=== PATIENT | male | born 1965 | race Caucasian/White ===

== ENCOUNTER 2023-05-30 06:45 | Day surgery (SDC) | payer BC, SELFPAY ==
[2023-05-26 10:33] LABS: Hematocrit 44.8 % (39.0-52.0); Hemoglobin 15.6 g/dL (13.0-18.0); Mean Corp Hgb Conc. 34.8 g/dL (33.0-37.0); Mean Corpuscular Hgb 31.8 pg (27.0-31.0); Mean Corpuscular Volume 91.4 fL (80.0-94.0); Mean Platelet Volume 10.3 fL (7.4-10.4); Platelet Count 208 10^3/uL (130-400); Red Cell Dist. Width 12.2 % (11.5-14.5); White Blood Cell Count 6.6 10^3/uL (4.8-10.8)
[2023-05-26 11:01] LABS: ALT (SGPT) 37 U/L (0-50); AST (SGOT) 30 U/L (17-59); Albumin 4.3 g/dl (3.5-5.0); Alkaline Phosphatase 58 U/L (38-126); Blood Urea Nitrogen 21 mg/dl (9-20); Calcium 9.3 mg/dl (8.4-10.2); Carbon Dioxide 30 mmol/L (22-30); Chloride 105 mmol/L (98-107); Glucose 95 mg/dl (70-99); Potassium 4.4 mmol/L (3.5-5.1); Sodium 139 mmol/L (135-145); Total Bilirubin 1.1 mg/dl (0.2-1.3); Total Protein 7.1 g/dl (6.3-8.2); eGFR > 60.00
[2023-05-26 13:33] VITALS: BMI 37.9
[2023-05-30] VITALS (11 sets, daily range): BP systolic 99–146; BP diastolic 59–94; BMI 37.9
--- NOTE | 2023-05-30 07:25 | HP.FOC2 ---
Focused History & Physical
Chief Complaint
HPI:
Chief Complaint: Chronic calculus cholecystitis
HPI / Indication for Planned Procedure: Patient is a 57-year-old male known to myself with a history of gallstones that he has been following expectantly for the past few years. He has occasional bouts of postprandial epigastric and right upper
quadrant abdominal pain. Ultrasound confirmed gallstones. He presents today for scheduled cholecystectomy.
Relevant Past Medical History: Other (GERD with Amos's)
Relevant Social History: Negative
Relevant Family History: Negative
Relevant Past Surgical History: Negative
Review of Systems
Review of Pertinent Systems: All Systems Negative
Medication
See Medication form for detailed medications: Yes
Medication List (including Herbals & OTC):
pantoprazole 40 mg tablet,delayed release 40 mg PO DAILY 05/25/23
sildenafil 100 mg tablet 100 mg PO DAILY PRN ED 05/25/23
Medications Reviewed: Yes
Allergies and Reactions
Patient has Allergies: No
Noted Allergies and Reactions:
Allergy/AdvReac Type Severity Reaction Status Date / Time
No Known Allergies Allergy Verified 05/25/23 14:50
Pertinent Physical Exam
All Other Systems: Negative
Head/Neck: Normal
Lungs: Normal
Heart: Normal
Abdomen: Normal
Extremities: Normal
Neurological: Normal
Diagnosis / Assessment
57-year-old male with symptomatic cholelithiasis/probable chronic calculus cholecystitis presenting for cholecystectomy
Plan / Procedure
Laparoscopic cholecystectomy with cholangiogram
Anesthesia/Sedation to be done by Anesthesia Provider: Yes
[2023-05-30] MEDS: TYLENOL 1000 MG PO (12:07)
[2023-05-30] MEDS: NORMOSOL-R 1000 IV (12:18)
--- NOTE | 2023-05-30 14:28 | W.SUR.PREOP ---
Pre-Operative Surgical Note
-
I have examined this patient prior to the performance of the scheduled procedure.
The patient's condition is unchanged from the time of the current History and
Physical and the patient is able to undergo the scheduled procedure.
--- NOTE | 2023-05-30 16:38 | W.IMMPOSTOP ---
Surgical Immed Post Op Note
-
Primary Surgeon:� Clive
Assisting Surgeon:� Mark BLANKENSHIP
Pre-op Diagnosis: Symptomatic cholelithiasis, chronic calculus cholecystitis
Post-op Diagnosis: � Symptomatic cholelithiasis, chronic calculus cholecystitis
Procedure Performed: Laparoscopic cholecystectomy with intraoperative cholangiogram
Anesthesia Type: GETA +0.25% Marcaine
Specimen / Cultures: Gallbladder
Estimated Blood Loss: 8 mL
Complications: None immediate
Operative Findings: Gallbladder with few filmy adhesions.� Numerous gallstones.� Intraoperative cholangiogram normal.� Cholecystectomy completed intact and extracted at epigastric 12 mm trocar site.
#[id number]
[2023-05-30] MEDS: SUBLIMAZE 50 MCG IV (16:42)
[2023-05-30] MEDS: DEMEROL 12.5 MG IV (16:57)
[2023-05-30] MEDS: ZOFRAN 4 MG IV (17:18)
== END 2023-05-30 18:36 | disposition home or self-care (01) ==
LOC: SDS 06:45
PROVIDERS: ATTENDING PHYSICIAN Surgery; FAMILY PHYSICIAN Family Medicine
DX: K80.10 Calculus of gallbladder with chronic cholecystitis without obstruction (principal)
CPT/HCPCS: 47563; 88304; 36415; 74300; 76000; 80053; 85027; 93005

== ENCOUNTER 2025-03-06 20:19 | Observation (INO) | payer BC, SELFPAY ==
[2025-03-06] VITALS (9 sets, daily range): BP systolic 128–166; BP diastolic 72–102; BMI 38.3
[2025-03-06 15:23] LABS: Hematocrit 45.0 % (39.0-52.0); Hemoglobin 15.9 g/dL (13.0-18.0); Mean Corp Hgb Conc. 35.3 g/dL (33.0-37.0); Mean Corpuscular Volume 87.9 fL (80.0-94.0); Nucleated Red Blood Cells % 0 % (-); Platelet Count 233 10^3/uL (130-400); Red Cell Dist. Width 12.4 % (11.5-14.5)
[2025-03-06 15:48] LABS: ALT (SGPT) 46 U/L (0-50); AST (SGOT) 31 U/L (17-59); Albumin 4.8 g/dl (3.5-5.0); Alkaline Phosphatase 55 U/L (38-126); Blood Urea Nitrogen 18 mg/dl (9-20); Calcium 9.8 mg/dl (8.4-10.2); Carbon Dioxide 28 mmol/L (22-30); Chloride 103 mmol/L (98-107); Glucose 126 mg/dl (70-99); Potassium 3.7 mmol/L (3.5-5.1); Sodium 140 mmol/L (135-145); Total Protein 7.8 g/dl (6.3-8.2); eGFR > 60.00
[2025-03-06 16:02] LABS: Troponin I 0.014 ng/ml
[2025-03-06] MEDS: NSS 1000 IV (17:17)
[2025-03-06] MEDS: MAALOX 30 ML PO (17:45)
[2025-03-06 17:52] LABS: Troponin I 0.018 ng/ml
--- NOTE | 2025-03-06 17:55 | ED.GENMED ---
History of Present Illness
General
Chief Complaint: Chest Pain
Time Seen by Provider: 03/06/25 15:59
Nursing documentation reviewed up to this point in time: agreed with
History of Present Illness
History of Present Illness:
59-year-old male presents the ER for evaluation left-sided chest pain which has been present persistently for the past few hours. Patient states that he was out responding on and EMS call. Patient was a cardiac arrest. He did feel more short
tired during this code. He felt facial flushing and development of left-sided chest pain. He denies palpitations. He has no prior personal history of ACS. He states that over the past several months he has occasionally experience chest pain but
has been able to exercise without any limitation. He denies peripheral edema. He has no prior personal history of venous thromboembolism. He has never seen a air press operator. He does have significant family history of ACS, his father having first
CA at age 50. He is a non-smoker. He does have significant GERD/Amos's but denies any feeling of indigestion at the current time. Has been compliant with his medications. He reports that the pain was 4 out of 10 prior to arrival in the ER.
During interview he reports pain to be 2 out of 10
Past History
Past History
ED Past Medical History: Other (Amos's)
ED Past Surgical History: None
Social History
Tobacco: Non-smoker
Alcohol: Occasional
Drug: None
Personal:
Living: with family
Employment: Employed
Review of Systems
Review of Systems
Allergies reviewed?: Yes
Phy Exam
Physical Exam
Physical Exam:
Patient is awake, alert, appears in no acute distress, head is NCAT, PERRL, EOMI, wearing glasses, mucous membranes moist, conjunctiva pink, heart regular rate and rhythm without murmurs or ectopy, lungs are clear to auscultation without wheezes
rales or rhonchi, no JVD, abdomen is soft and nontender on palpation, extremities without edema, GCS is 15
Scores
Heart Score for Chest Pain Patients
STEMI patient?: No
History: Moderately Suspicious
ECG: Nonspecific Repolarization
Age: >45 - <65 years
Risk Factors: 1 or 2 Risk Factors
Troponin: >1 - <3 x Normal Limit
Heart Score for Chest Pain Patients: 5
Heart Score Risk: 20.3% MACE over next 6 weeks
Course
Orders/Labs/Results
Orders:
Orders
03/06/25 15:01
Electrocardiogram (*1) Urgent
Reason for Study: Chest Pain
EKG- Treatment ONCE
03/06/25 15:05
Complete Blood Count/With Diff Urgent
Comprehensive Metabolic Panel Urgent
Troponin I Urgent
03/06/25 16:00
CR Chest - 2 Views Urgent
Comment:
Reason For Exam: chest pain
03/06/25 17:04
0.9% Sodium Chloride 1000 ml [Nss] 1,000 ml IV BOLUS
03/06/25 17:05
Electrocardiogram (*1) Urgent
Reason for Study: Chest Pain
EKG- Treatment ONCE
03/06/25 17:15
D-Dimer Urgent
Troponin I Urgent
03/06/25 17:43
Mag Hydrox/Al Hydrox/Simeth [Maalox] 30 ml PO NOW STA
03/06/25 19:36
Admit/Transfer Patient As Directed
Co-Sign Provider:
Level of Care: Observation services
Assign to:: Telemetry
Physician / Group: kim
Diagnosis: chest pain
Reason for Telemetry: Chest Pain syndromes
Date to Stop Telemetry: 03/08/25
Time to Stop Telemetry: 11:00
PRN Pain Medication Management As Directed
May give lesser potent ordered pain med per pt: Yes
preference::
Protocol:: Medication orders for pain may be administered in a
manner that supports deferring to patient preference
when the pt is:
- Requesting an ordered lesser potent pain medication.
Least to most potent pain medications are defined
as: acetaminophen < NSAID < tramadol < opioids
(morphine, oxycodone, hydromorphone).
- Requesting a lesser dose of the same medication IF
ORDERED.
- Requesting a less intrusive route of administration
if both routes are prescribed by the provider (PO <
IV).
03/06/25 19:37
Code Status As Directed
Resuscitation Status: Full Code
03/08/25 11:00
DC Protocol for Telemetry ONCE
Abnormal Lab Results
03/06/25
15:05
MCH 31.1 H pg
(27.0-31.0)
Absolute Neuts (auto) 7.1 H 10^3/uL
(1.4-6.5)
Absolute Monos (auto) 0.7 H 10^3/uL
(0.1-0.6)
Glucose 126 H mg/dl
(70-99)
03/06/25 15:05
03/06/25 15:05
Minimal elevation of troponin just above negative value CBC within normal limits. Kidney function preserved. D-dimer negative
Vital Signs
Initial and Last Documented VS:
Initial Vital Signs
Pulse Resp BP Pulse Ox
115 17 148/102 97
03/06/25 15:00 03/06/25 15:00 03/06/25 15:00 03/06/25 15:00
Last Documented Vital Signs
Pulse Resp BP Pulse Ox
92 19 134/74 95
03/06/25 20:30 03/06/25 20:30 03/06/25 20:00 03/06/25 20:30
MDM/Problems Addressed
Differential Diagnosis Includes:
Differential diagnosis to consider but not limited to ACS, esophageal spasm, pulmonary embolism, GERD, anxiety, muscle spasm along with other etiologies can
Chronic conditions affecting care:
Age greater than 50
*Radiology
Radiology exam reviewed: preliminary read by ED provider (I dependently viewed and interpreted two-view chest x-ray as no acute process, normal cardiac silhouette) and radiology read reviewed (IMPRESSION: No evidence of active cardiopulmonary
disease.)
*Pulse Oximetry
SaO2: 93
Oxygen Mode of Delivery: Room air
Patient hypoxic: no
*EKG
Interpreted by ED Provider?: Yes (I independently viewed and interpreted twelve-lead EKG showing sinus tachycardia, rate 117, inferior Q waves, no ST elevation, mild baseline artifact with possible ST depressions in the lateral leads)
*General Dentist/Owner Interpretation
Rate: tachycardiac (I independently viewed and interpreted rhythm strip showing sinus tachycardia, no ectopy)
*Critical Care Note
Total Time (30-74mins, 75-104mins- exclusive of procedures): Not Applicable
Update Note
Update Note:
1732: Repeat EKG shows improvement, resolution of ST depressions in the lateral leads, no longer tachycardic. Patient also brings with him twelve-lead EKG that he performed on himself at onset of symptoms with an improved baseline-this has been
scanned into the medical record. Awaiting repeated troponin, D-dimer. Patient is no longer having pain. Will give Maalox and reassess
Repeated troponin shows slight delta. I reviewed patient presentation with on-call air press operator who would not objected to overnight observation given constellation of symptoms. He would request that patient be made n.p.o. for possible stress test
in the morning. I reviewed full patient presentation with the hospitalist accepts patient for admission. Patient was given aspirin prior to arrival. Patient had no additional pain after my initial assessment-pain had improved prior to
administration of Maalox.
ED Attending Note
-
Portions of this chart may have been created with voice recognition software.� Occasional wrong word or��sound alike� substitutions may have occurred due to the inherent limitations of voice recognition software.
Discharge Plan
Departure
Patient Disposition: Admit
Date of Disposition: 03/06/25
Time of Disposition: 19:10
Presentation/result/management discussed w/ accepting MD/DO: Hospitalist
Discharge Problem:
Chest pain
Interventions
Interventions:
*Risk Screen - Suicide Last Done: 03/06/25 15:02
*General Assessment Last Done: 03/06/25 15:02
*Neglect/Abuse Screening Last Done: 03/06/25 15:02
*ED- Fall Risk Assessment Last Done: 03/06/25 15:02
*ED COVID-19 Vaccine History Last Done: 03/06/25 15:02
*ED Influenza Vaccine History Last Done: 03/06/25 15:02
ED- Cardiac Assessment Last Done: 03/06/25 15:15
[2025-03-06 18:20] LABS: D-Dimer 0.37 ug/mlFEU (0.00-0.50)
--- NOTE | 2025-03-06 19:23 | HPS.HSE ---
Family Physician
-
Family Physician: Felix Willis
Chief Complaint
-
left sided chest pain
History of Present Illness
59-year-old with past medical history for Amos esophagus presented to us with intermittent left-sided nonexertional chest pain for past few weeks. The pain only last for few minutes. He at times feels a knot back of his scapula along with chest
pain. Denies short of breath. Denied headache, dizzy or syncope. Patient denied any fever, chills, cough, congestion. Patient denied abdominal pain, nausea, vomiting or diarrhea. Patient denied dysuria, hematuria.
Admitted for further management
Medical History
Past Medical History
Past Medical History: Reports Other
Additional Past Medical History:
Amos's esophagus
Past Surgical History: Reports Other
Additional Past Surgical History:
Right shoulder rotator cuff tear, cholecystectomy with cholangiogram
Social History
Tobacco: Non-smoker
Alcohol: Occasional
Drug: None
Family History
Family History: Not pertinent
Allergies / Home Medications
Allergies reflects when Allergies were last updated in [facility].
Home Medications with original date entered in [facility]
Allergy/Medication List:
Allergies
Allergy/AdvReac Type Severity Reaction Status Date / Time
No Known Allergies Allergy Verified 05/30/23 11:57
Home Medications
pantoprazole 40 mg tablet,delayed release 40 mg PO DAILY Gastrointestinal Issue 05/25/23
sildenafil 100 mg tablet 50 mg PO DAILYPRN PRN ED 05/25/23
Review of Systems
-
Constitutional: Reports No Symptoms
EENT: Reports No Symptoms
Respiratory: Reports No Symptoms
Cardiac: Reports Chest Pain
Abdomen/GI: Reports No Symptoms
: Reports No Symptoms
Musculoskeletal: Reports No Symptoms
Skin: Reports No Symptoms
Neurological: Reports No Symptoms
Endocrine: Reports No Symptoms
Hematologic/Lymphatic: Reports No Symptoms
Psych: Reports No Symptoms
Physical Exam
Vital Signs
Vital Signs
Pulse Resp BP Pulse Ox
78 22 146/88 94
03/06/25 18:15 03/06/25 18:15 03/06/25 18:00 03/06/25 18:15
Physical Exam
General: Well Developed, Well Nourished and No Apparent Distress
HEENT: NormoCephalic, Moist mucous membranes and Atraumatic
Respiratory: Clear
Cardiac: S1/S2 and Regular Rhythm; No Murmur or Rub
GI: Soft, Non Tender, Non Distended and Normal Bowel Sounds; No Organomegaly
Rectal: Deferred by Provider
Musculoskeletal: No Clubbing, No Cyanosis and No Edema
Skin: No Rash
Neuro: AO x 3 and Nonfocal/grossly intact
Psych: Calm
Laboratory Results
-
03/06/25 15:05
03/06/25 15:05
Laboratory Results
Total Bilirubin 0.9 mg/dl (0.2-1.3) 03/06/25 15:05
AST 31 U/L (17-59) 03/06/25 15:05
ALT 46 U/L (0-50) 03/06/25 15:05
Alkaline Phosphatase 55 U/L (38-126) 03/06/25 15:05
Troponin I 0.018 ng/ml D 03/06/25 17:15
Data Reviewed
-
Lab Data: Labs Reviewed by me
Impression/Plan
-
# Chest pain rule out NSTEMI
- Trop 0.018
- Chest x-ray pending
- EKG with sinus tachycardia cannot rule out inferior infract
- Repeat EKG with normal sinus rhythm
-trend trop and EKG
- Cardiology consult
# History of Amos's esophagus
- Protonix continue
# DVT prophylaxis
- Lovenox
#CODE STATUS
- Full code
--- NOTE | 2025-03-06 19:28 | W.PN.UPDATE ---
Update Note
Progress Note Update
Patient seen in conjunction with nurse practitioner. I agree with the findings unremarkable. I performed the assessment and plan as indicated below.
Briefly, this is a 59-year-old male with a past medical history significant for Amos's esophagus/GERD, history of gallstones status post cholecystectomy, kidney stones presenting to the emergency department with chest pain. Patient reports
approximately a few weeks history of intermittent left-sided chest pain not associated with exertion or any particular activity. Sometimes he feels the pain is localized to his scapular region. There is no radiation to the neck jaw or arms.
Denied any association with diaphoresis. Reports some fatigue and mild dyspnea on exertion. No recent stress test. No prior history of CAD. Denies this feels like his GERD symptoms. Denies any urinary symptoms. Denies any hematuria. 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 There was mild nausea. Not reproducible with palpation. He was given 1 4 baby aspirin and route to the emergency department. He is currently chest
pain-free. Prehospital ECG shows ST depressions in the lateral leads.
In the emergency department patient was afebrile, blood pressure was 146/88 with a pulse of 78 and she was satting 94% on room air. Chest x-ray shows no acute abnormalities. ECG in the emergency department shows a T wave inversions in lead III and
aVF and normalization of the prior ST depression. Otherwise unremarkable with a normal sinus rhythm. Troponin was marginally increased to 0.014 then 0.018. CBC was unremarkable. Electrolytes BUN and creatinine were normal.
Assessment and plan
59-year-old male with no known prior history of coronary artery disease, however does have prior history of gallstones status post cholecystitis, GERD with Amos's esophagus and nephrolithiasis presenting to the emergency department with
intermittent chest pain that has been going on for few weeks. 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 In the emergency department woke up this unremarkable at this time 1 only notable for
transient ECG abnormality.
Chest pain -atypical in presentation and nature but patient has sufficient risk factors
- Admit to telemetry observation
- Continue to trend troponin
- Echocardiogram in a.m. for wall motion abnormality
- Additional stratification with cardiovascular panel in a.m., check A1c
- Nitroglycerin as needed chest pain
- Continue his pantoprazole
- Cardiology consult in a.m.
DVT prophylaxis SCDs
CODE STATUS full code
--- NOTE | 2025-03-06 20:45 | PTCARENOTE ---
Pt received from ED via stretcher accompanied by ED staff. AAOx3, ambulated to bed. VSS w/o complaints of pain. Placed on tele. Pt oriented to room with call peterson within reach.
[2025-03-06 22:22] LABS: Troponin I 0.022 ng/ml
[2025-03-07 01:40] LABS: Troponin I 0.020 ng/ml
[2025-03-07 03:00] VITALS: BP 124/70
[2025-03-07 05:55] LABS: HDL Cholesterol 64 mg/dl; LDL Cholesterol, Calculated 93 mg/dl; Very Low Density Lipoprotein 16 mg/dl (0-30)
[2025-03-07 06:00] VITALS: BMI 37.5
[2025-03-07 06:27] LABS: Troponin I 0.019 ng/ml
[2025-03-07 07:05] LABS: Hepatitis C Antibody Negative (Negative)
[2025-03-07 07:20] VITALS: BP 111/70
--- NOTE | 2025-03-07 07:38 | CON.CAR ---
Addendum entered and electronically signed by Dung Fraire MD 03/07/25 08:04:
ECG today shows normal sinus rhythm with no ischemic change.
Compared with ECG yesterday there is a more clearly noted isolated T wave inversion in lead III. Heart rate is currently in the 60s heart rate was more elevated in the ER one of the ECGs heart rate was in the 80s and on the initial presentation
heart rate was 117
Original Note:
Consultation
Consultation Request
Date/Time Consultation Performed: 03/07/2025 7 AM
Requesting Provider: hospitalist
Performing Provider: Dr. Fraire
Reason for Consultation: Chest pain
Medical History
-
History of Present Illness:
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 Patient states in general he has been feeling well tired over the past week he has had some intermittent left-sided chest discomfort that feels like a knot.
Symptoms occur randomly, mild intensity and last about 5 to 10 minutes. Episodes occurring a couple times a week. 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
felt a knot in his chest he checked his blood pressure and it was elevated with a systolic in the 170s and due to the chest discomfort opted to go to the ER. Chest discomfort resolved spontaneously total duration about 15 to 20 minutes. No other
associated symptoms and no clear precipitating factors. Patient exercise on a regular basis including exercise he has been doing this weeks. This includes lifting and aerobic activity. He used to do a lot of [employer]. It sounds as if his
endurance has been stable.
History of hypertension hypercholesterolemia diabetes smoking.
Family history is notable for coronary artery disease. Father had coronary stents in his 50s .
Past Medical History
Past Medical History: Other (Amos's esophagus)
Social History
Tobacco: Non-Smoker
Family History
Family History: CAD (Father had coronary stenting in his 50s) and Other ( )
Allergies / Home Medications
Allergy/AdvReac Type Severity Reaction Status Date / Time
No Known Allergies Allergy Verified 05/30/23 11:57
�Medication �Instructions �Recorded �Confirmed �Type
pantoprazole 40 mg tablet,delayed 40 mg PO DAILY Gastrointestinal 05/25/23 03/06/25 History
release Issue
sildenafil 100 mg tablet 50 mg PO DAILYPRN PRN ED 05/25/23 03/06/25 History
Review of Systems
-
All other systems: Negative unless noted
Physical Exam
Vital Signs
Temp Pulse Resp BP Pulse Ox
98.3 F 64 16 124/70 96
03/07/25 03:00 03/07/25 03:00 03/07/25 03:00 03/07/25 03:00 03/07/25 03:00
Lab Results
03/06/25 15:05
03/06/25 15:05
Troponin I Cancelled 03/07/25 06:45
Physical Exam
General: Well Developed, Well Nourished and No Apparent Distress
HEENT: Normocephalic, Anicteric and Other (Extract movements intact, pupils equal external ear normal nose unremarkable neck is adenopathy no JVD no carotid bruit)
Respiratory: Clear and Other (No wheezes rales)
Cardiac: Regular Rhythm (No murmur rub or gallop)
GI: Soft, Non Tender, Non Distended and Other (No past hepatosplenomegaly)
Musculoskeletal: No Clubbing, No Cyanosis and No Edema
Skin: Warm, Dry and Other (No rash)
Neuro: Awake, Alert and Oriented
Psych: Calm and Other (Cooperative)
Impression / Plan
-
.
Chest discomfort.
-Etiology unclear consider cardiac and noncardiac causes. Although location and quality discomfort could be consistent with angina of the pattern of symptoms and lack of symptoms with exercise makes angina less likely. Risk factors include family
history of CAD.
-Currently chest pain-free.
- Troponins negative
- Plan for stress testing.
Data Reviewed
-
EKG: Report Reviewed by me
Radiology: Report Reviewed by me
Medical Tests (Nuc Med, Echo etc): Report Reviewed by me
Labs: Labs Reviewed by me
[2025-03-07] MEDS: PROTONIX 40 MG PO (09:09)
[2025-03-07 09:21] LABS: Glycohemoglobin (HgbA1c) 5.5 % (4.0-5.9)
--- NOTE | 2025-03-07 12:49 | PTCARENOTE ---
Pt returned from Stress Test. Dr Montoya in to see pt. Plan on discharge.
--- NOTE | 2025-03-07 13:03 | W.DCSUMMARY ---
Discharge Summary
Discharge Data
Date of Admission: 03/06/25
Date of Discharge: 03/07/25
-
Pending Results: No
Hospital Course
Primary diagnosis:
Chest pain
Secondary diagnosis:
History of Amos's esophagus
Hospital course:
79-year-old with history of Amos's esophagitis, gallstones s/p cholecystectomy, kidney stones presented with chest pain. It been going on for 3 weeks. On and off intermittently in the left side of the chest and sometimes he feels like a knot in
the back of the chest. Not associated with exertion or any activity. Not associated with food. No radiation to the neck or the arms. Denies any other associated symptoms of sweating or lightheadedness. Denies any shortness of breath.
Is very active and does a lot of heavy lifting. 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 No prior history of CAD.
Exam was unremarkable. Chest x-ray showed no evidence of acute disease. EKG and troponins were not suggestive of acute coronary syndrome. He had stress test as well during this admission which was negative. He was seen by cardiology. Did not
sound like cardiac in nature.
Unclear if this is musculoskeletal with there is no localized tenderness.
Today after stress test he was feeling comfortable and he does not have any chest pain. He did not develop any chest pain with a stress test. Afebrile, pulse 73, blood pressure 111/70. Denies any shortness of breath. Heart sinus and persisted
regular. No chest wall tenderness in the area of left upper thorax. Abdomen soft no epigastric tenderness.
Deemed medically stable for discharge home.
Consultants on board:
Cardiology-Dung Pena
Portions of this chart may have been created with voice recognition software. Occasional wrong word or 'sound alike' substitutions may have occurred due to the inherent limitations of voice recognition software.
Discharge Plan
-
Patient Disposition: Home (Routine Discharge)
Discharge Diagnosis/Procedures: chest pain
Diet: Regular
Activity: As tolerated
Driving Restrictions: As prior to admission
Bathing Restrictions: None
Referrals:
Felix Willis MD [Family Provider, [facility]] - in one week
Prescriptions:
Continued
sildenafil 100 mg Tablet
50 mg PO DAILYPRN PRN (Reason: ED)
pantoprazole 40 mg Tablet,Delayed Release (Dr/Ec)
40 mg PO DAILY
Discharge Orders:
Discharge Patient (As Directed); Ordered 03/07/25
Ordered By: Benson Montoya
Discharge Date and Time
Print Language: LITHUANIAN
[2025-03-07 13:09] VITALS: BP 143/86
--- NOTE | 2025-03-07 13:33 | CM ---
Pt discharged home with no needs.
IA completed. OBS form given and placed on chart. Independent in ADLs and IADLs. LIves in 2 story home with , dtr, son, and [id number]. 3 steps at the entrance to the home. inside steps- 13, Full BR on 1st floor. No hx of HH, CNF, DME ore
home O2, NO insecurities identified. Confirmed PCP, Rx, insurance and drug coverage
PCP: Felix Willis
RX: [facility]
== END 2025-03-07 13:55 | disposition home or self-care (01) ==
LOC: 4 EAST ACU 20:19
PROVIDERS: Registered Nurse; ADMITTING PHYSICIAN Internal Medicine; ATTENDING PHYSICIAN Internal Medicine; CONSULT PHYSICIAN Internal Medicine Cardiovascular Disease; EMERGENCY PHYSICIAN Emergency Medicine; FAMILY PHYSICIAN Family Medicine
DX: R07.89 Other chest pain (principal); R11.0 Nausea; R23.2 Flushing; R53.83 Other fatigue; K21.9 Gastro-esophageal reflux disease without esophagitis; K22.70 Barrett's esophagus without dysplasia; R79.89 Other specified abnormal findings of blood chemistry; I49.9 Cardiac arrhythmia, unspecified; R00.0 Tachycardia, unspecified; I10 Essential (primary) hypertension; E11.9 Type 2 diabetes mellitus without complications; E78.00 Pure hypercholesterolemia, unspecified; E66.9 Obesity, unspecified; Z87.19 Personal history of other diseases of the digestive system; Z90.49 Acquired absence of other specified parts of digestive tract; Z68.37 Body mass index [BMI] 37.0-37.9, adult; Z82.49 Family history of ischemic heart disease and other diseases of the circulatory system; Z87.442 Personal history of urinary calculi
CPT/HCPCS: 71046; 78452; 80053; 80061; 83036; 84484; 85025; 85379; 86803; 93005; 93017; 96360; 99285; A9500; G0378